=== PATIENT | male | born 1995 | race Caucasian/White ===

== ENCOUNTER 2018-12-01 03:20 | Emergency (ER) | payer OTHER ==
[2018-12-01 04:14] LABS: BASOPHIL % 0.2 % (0-2); PLATELET COUNT 266 x10^3mcL (130-400)
[2018-12-01 04:37] LABS: ALBUMIN 4.2 g/dL (3.4-5.0); ALKALINE PHOSPHATASE 159 U/L (46-116); ALT/SGPT 58 U/L (16-63); AST/SGOT 20 U/L (15-37); CALCIUM 9.5 mg/dL (8.5-10.1); CARBON DIOXIDE 15.4 mmol/L (21-32); CHLORIDE SERUM 97 mmol/L (98-107); GFR1 > 60 mL/min; POTASSIUM SERUM 3.9 mmol/L (3.5-5.1); SODIUM SERUM 135 mmol/L (136-145); TOTAL PROTEIN, SERUM 7.9 g/dL (6.4-8.2)
[2018-12-01 04:41] LABS: GLUCOSE SERUM 578 mg/dL (74-106)
[2018-12-01 05:58] LABS: microscopic required? NO
[2018-12-01 06:35] LABS: AMPHETAMINE QUAL UR NONE DETECTED (See below)
[2018-12-01 07:03] LABS: UA SPECIFIC GRAVITY <=1.005 (1.005-1.035); urine erythrocyte NEGATIVE (NEGATIVE)
[2018-12-01 08:27] LABS: CALCIUM 7.9 mg/dL (8.5-10.1); CARBON DIOXIDE 20.9 mmol/L (21-32); CHLORIDE SERUM 106 mmol/L (98-107); CREATININE SERUM 0.7 mg/dL (0.7-1.3); GFR1 > 60 mL/min; GLUCOSE SERUM 253 mg/dL (74-106); POTASSIUM SERUM 3.9 mmol/L (3.5-5.1); SODIUM SERUM 141 mmol/L (136-145)
[2018-12-01 08:55] VITALS: BP 156/66
== END 2018-12-01 08:55 | disposition home or self-care (01) ==
LOC: ED 03:20
PROVIDERS: Emergency Medicine; Specialist
DX: E11.10 Type 2 diabetes mellitus with ketoacidosis without coma (principal); G93.41 Metabolic encephalopathy
CPT/HCPCS: 36600; 82962; G0480; J1630; J2060; J7030

== ENCOUNTER 2019-03-05 19:35 | Emergency (ER) | payer SELFPAY ==
[~2019-03-05] VITALS: Ht 167.6 cm; Wt 104.3 kg
[2019-03-05 19:40] VITALS: Ht 167.6 cm; Wt 104.3 kg
[2019-03-05 20:43] LABS: BASOPHIL % 0.3 % (0-2); PLATELET COUNT 291 x10^3mcL (130-400); RED CELL DISTRIBUTION WIDTH 13.1 % (11.5-14.5)
[2019-03-05 20:52] LABS: CALCIUM 8.2 mg/dL (8.5-10.1); CARBON DIOXIDE 18.5 mmol/L (21-32); CHLORIDE SERUM 110 mmol/L (98-107); CREATININE SERUM 1.1 mg/dL (0.7-1.3); GFR1 > 60 mL/min; GLUCOSE SERUM 112 mg/dL (74-106); POTASSIUM SERUM 3.7 mmol/L (3.5-5.1); SODIUM SERUM 147 mmol/L (136-145)
[2019-03-05 20:53] LABS: AMPHETAMINE QUAL UR NONE DETECTED (See below)
[2019-03-05 20:58] LABS: ALBUMIN 4.2 g/dL (3.4-5.0); ALKALINE PHOSPHATASE 76 U/L (46-116); ALT/SGPT 86 U/L (16-63); AST/SGOT 34 U/L (15-37); BILIRUBIN TOTAL 0.24 mg/dL (0.20-1.00); TOTAL PROTEIN, SERUM 7.8 g/dL (6.4-8.2)
[2019-03-06 02:08] VITALS: BP 138/80
== END 2019-03-06 02:08 | disposition home or self-care (01) ==
LOC: ED 19:35
PROVIDERS: Emergency Medicine
DX: F10.231 Alcohol dependence with withdrawal delirium (principal); E11.9 Type 2 diabetes mellitus without complications
CPT/HCPCS: 36415; 82962; G0480; J3490